=== PATIENT | female | born 2000 | race American Indian/Alaskan Native ===

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

== ENCOUNTER 2019-10-02 16:04 | Emergency (ER) | payer SELFPAY ==
[2019-10-02 16:54] VITALS: BP 139/94
== END 2019-10-02 18:45 | disposition left against medical advice (07) ==
LOC: ED 16:04
DX: J02.9 Acute pharyngitis, unspecified (principal); Z53.21 Procedure and treatment not carried out due to patient leaving prior to being seen by health care provider